=== PATIENT | male | born 1955 | race Caucasian/White ===

== ENCOUNTER 2016-07-23 09:42 | Emergency (ER) | payer OTHER ==
[2016-07-23] MEDS ORDERED: Ondansetron INJ* 2 MG/ML VIAL IV ONE (10:35)
[2016-07-23] MEDS ORDERED: Ketorolac INJ* 30 MG/ML 1 ML VIAL IV ONE (10:35)
[2016-07-23] MEDS ORDERED: HYDROmorphone INJ* 1 MG/ML CARPUJECT SYRINGE IV ONE (10:35)
[2016-07-23 10:52] LABS: Hematocrit 44 % (42-52); Hemoglobin 14.7 g/dl (14.0-18.0); Mean Corpuscular HGB Conc 33 g/dl (31-36); Mean Corpuscular Hemoglobin 30 pg (27-31); Mean Corpuscular Volume 90 fL (80-94); Mean Platelet Volume 7 um3 (7.4-10.4); Red Blood Count 4.91 10^6/ul (4.0-5.4); Red Cell Distribution Width 14 % (10.5-15); White Blood Count 13.1 10^3/ul (3.5-10.8)
[2016-07-23 11:08] LABS: Albumin 3.9 g/dL (3.2-5.2); C Reactive Protein 5.49 mg/L (< 5.00); Calcium 9.7 mg/dL (8.6-10.3); EGFR African American 126.8 (>60); EGFR Non-African American 98.6 (>60); Globulin 2.7 g/dL (2-4); Potassium 4.5 mmol/L (3.5-5.0); Total Bilirubin 0.3 mg/dL (0.2-1.0); Total Protein 6.6 g/dL (6.4-8.9)
--- NOTE | 2016-07-23 11:30 | RAD ---
CLINICAL HISTORY: Right flank pain COMPARISON: May 22, 2015 TECHNIQUE: Multiple contiguous axial CT scans were obtained of the abdomen and pelvis, without intravenous contrast enhancement. Coronal and sagittal multiplanar reformations are submitted for review. Oral contrast was not administered. FINDINGS: LUNG BASES: The lung bases are clear. LIVER: Simple cyst of the left lobe of liver. BILE DUCTS: There is no intrahepatic or extrahepatic biliary dilatation. GALLBLADDER: The gallbladder is normal, without pericholecystic inflammatory change. PANCREAS: The pancreas is normal, without mass or ductal dilatation. SPLEEN: Normal in size and appearance. UPPER GI TRACT: Evaluation of the gastrointestinal tract is limited by incomplete gastric distention. There is malrotation. The duodenal-jejunal junction is to the right of midline. SMALL BOWEL AND MESENTERY: As noted above, there is malrotation. There is no obstruction or findings of volvulus. COLON: There are multiple diverticula of the sigmoid colon. There is no pericolonic inflammatory change. ADRENALS: Normal bilaterally. KIDNEYS: There is perinephric stranding on the right with mild pelvic caliectasis and hydroureter. There is a 0.3 cm calculus of the distal right ureter. BLADDER: The bladder is smooth in contour. PELVIC ORGANS: The prostate gland is normal. The seminal vesicles are symmetric. AORTA: There is calcific atherosclerotic disease of the abdominal aorta and its branches, without aneurysmal dilatation IVC: Unremarkable LYMPH NODES: There is no lymphadenopathy by size criteria. ABDOMINAL WALL: There is no evidence for abdominal wall hernia. BONES AND SOFT TISSUES: Degenerative changes are noted along the spine OTHER: None IMPRESSION: 1. DISTAL RIGHT URETERAL STONE MEASURING 0.3, WITH MILD RIGHT HYDRONEPHROSIS. 2. MALROTATION. 3. DIVERTICULOSIS. 4. ATHEROSCLEROSIS
[2016-07-23] MEDS: NS 0.9% 1000 ML* 2,000 ML IV ONE ×2 (11:51→12:09)
[2016-07-23 12:58] LABS: Urine Bacteria Absent (Absent); Urine Bilirubin Negative (Negative); Urine Glucose Negative (Negative); Urine Nitrite Negative (Negative)
[2016-07-23 13:32] VITALS: BP 111/56
--- NOTE | 2016-07-23 15:26 | ED ---
Karson Perez Salem, scribed for Ky Vaughn MD on 07/23/16 at 1122 . Back Pain - HPI Summary HPI Summary: Patient is a 60 y/o male who presents to the ED with constant right flank pain since this morning. He reports pain radiates to his groin and is not aggravated or alleviated by anything. He reports nausea, but denies vomiting. Pt has a hx of renal calculi on the right side, but states that pain is dissimilar to past episode. - History of Current Complaint Chief Complaint: EDFlankPain Stated Complaint: RT SIDE ABD PAIN Time Seen by Provider: 07/23/16 10:01 Hx Obtained From: Patient Onset/Duration: Gradual Onset, Lasting Hours, Still Present Onset/Duration: Started Hours Ago, Still Present Timing: Constant Back Pain Location: Is Discrete @ - Right plank., Radiates To - Groin. Pain Intensity: 9 Pain Scale Used: 0-10 Numeric Aggravating Symptom(s): Nothing Alleviating Symptom(s): Nothing Associated Signs And Symptoms: Positive: Other - Nausea, but not vomiting. - Allergies/Home Medications Allergies/Adverse Reactions: Allergies Allergy/AdvReac Type Severity Reaction Status Date / Time NKDA Allergy Unknown See Comment Uncoded 07/23/16 09:47 PMH/Surg Hx/FS Hx/Imm Hx Endocrine/Hematology History: Reports: Hx Anticoagulant Therapy - low dose asa Denies: Hx Diabetes Cardiovascular History: Reports: Hx Coronary Artery Disease, Hx Hypercholesterolemia, Hx Hypertension - meds, Other Cardiovascular Problems/ Disorders - 04/2008- stent Denies: Hx Pacemaker/ICD Respiratory History: Reports: Hx Asthma - "possibly a hint", Hx Sleep Apnea - evaluation for 12/2013, Other Respiratory Problems/Disorders - hx pulmonary nodule GI History: Reports: Other GI Disorders - colon polyps, hemorrhoidectomy, malrotation intenstines History: Reports: Other Problems/Disorders - hx hematuria, negative work up (Alexandro) Denies: Hx Renal Disease Sensory History: Denies: Hx Hearing Aid Psychiatric History: Denies: Hx Panic Disorder - Surgical History Surgery Procedure, Year, and Place: 2007 & 2008- cardiac stent placements [facility] OK FOR 1.5 OR 3T 720G/CM PER PT CARD FAXED IN OTHER FACILITY INFO, 2006 -tubular adenoma (?pt denies), 2004 lap appendectomy, hemorrhoidectomy x2 Hx Anesthesia Reactions: Yes - 2005 paradoxical reaction conscious sedation Infectious Disease History: No Infectious Disease History: Denies: Hx Clostridium Difficile, Hx Hepatitis, Hx Human Immunodeficiency Virus (HIV), Hx of Known/Suspected MRSA, Hx Shingles, Hx Tuberculosis, Hx Known/ Suspected VRE, Hx Known/Suspected VRSA, History Other Infectious Disease, Traveled Outside the [place] in Last 30 Days - Family History Known Family History: Positive: Other - Brother has heart murmur. - Social History Alcohol Use: None Alcohol Amount: 20+ yrs without Substance Use Type: Reports: None Smoking Status (MU): Former Smoker Type: Cigarettes Amount Used/How Often: 1-3 ppd Length of Time of Smoking/Using Tobacco: 40 years Have You Smoked in the Last Year: No Review of Systems Positive: Nausea. Negative: Vomiting Positive: flank pain - Right flank radiating to groin area. All Other Systems Reviewed And Are Negative: Yes Physical Exam Triage Information Reviewed: Yes Vital Signs On Initial Exam: Initial Vitals Temp Pulse Resp BP Pulse Ox 98.0 F 98 20 132/71 99 07/23/16 09:47 07/23/16 09:47 07/23/16 09:47 07/23/16 09:47 07/23/16 09:47 Vital Signs Reviewed: Yes Appearance: Positive: Well-Appearing, Pain Distress - Moderate to severe pain. Skin: Positive: Warm, Skin Color Reflects Adequate Perfusion, Dry Head/Face: Positive: Normal Head/Face Inspection Eyes: Positive: Normal Neck: Positive: Supple, Nontender Respiratory/Lung Sounds: Positive: Clear to Auscultation, Breath Sounds Present Cardiovascular: Positive: RRR Abdomen Description: Positive: Nontender, Soft. Negative: CVA Tenderness (R), CVA Tenderness (L), Other: - Negative leg raise. Bowel Sounds: Positive: Present Musculoskeletal: Positive: Normal Neurological: Positive: Normal Psychiatric: Positive: Normal, Affect/Mood Appropriate AVPU Assessment: Alert - Justina Coma Scale Coma Scale Total: 15 Diagnostics - Vital Signs Vital Signs Temp Pulse Resp BP Pulse Ox 07/23/16 10:52 19 07/23/16 10:30 55 15 136/69 97 07/23/16 10:06 52 97 07/23/16 10:04 138/71 07/23/16 09:47 98.0 F 98 20 132/71 99 - Laboratory Lab Results: Lab Results 07/23/16 07/23/16 Range/Units 10:35 10:35 WBC 13.1 H (3.5-10.8) 10^3/ul RBC 4.91 (4.0-5.4) 10^6/ul Hgb 14.7 (14.0-18.0) g/dl Hct 44 (42-52) % MCV 90 (80-94) fL MCH 30 (27-31) pg MCHC 33 (31-36) g/dl RDW 14 (10.5-15) % Plt Count 354 (150-450) 10^3/ul MPV 7 L (7.4-10.4) um3 Neut % (Auto) 87.8 H (38-83) % Lymph % (Auto) 6.8 L (25-47) % Boyle % (Auto) 4.4 (1-9) % Eos % (Auto) 0.2 (0-6) % Baso % (Auto) 0.8 (0-2) % Absolute Neuts (auto) 11.5 H (1.5-7.7) 10^3/ul Absolute Lymphs (auto) 0.9 L (1.0-4.8) 10^3/ul Absolute Monos (auto) 0.6 (0-0.8) 10^3/ul Absolute Eos (auto) 0 (0-0.6) 10^3/ul Absolute Basos (auto) 0.1 (0-0.2) 10^3/ul Absolute Nucleated RBC 0 10^3/ul Nucleated RBC % 0 Sodium 138 (133-145) mmol/L Potassium 4.5 (3.5-5.0) mmol/L Chloride 107 (101-111) mmol/L Carbon Dioxide 25 (22-32) mmol/L Anion Gap 6 (2-11) mmol/L BUN 16 (6-24) mg/dL Creatinine 0.80 (0.67-1.17) mg/dL Est GFR ( Amer) 126.8 (>60) Est GFR (Non-Af Amer) 98.6 (>60) BUN/Creatinine Ratio 20.0 (8-20) Glucose 123 H (70-100) mg/dL Calcium 9.7 (8.6-10.3) mg/dL Total Bilirubin 0.30 (0.2-1.0) mg/dL AST 13 (13-39) U/L ALT 17 (7-52) U/L Alkaline Phosphatase 82 (34-104) U/L C-Reactive Protein 5.49 H (< 5.00) mg/L Total Protein 6.6 (6.4-8.9) g/dL Albumin 3.9 (3.2-5.2) g/dL Globulin 2.7 (2-4) g/dL Albumin/Globulin Ratio 1.4 (1-3) Result Diagrams: 07/23/16 10:35 07/23/16 10:35 Lab Statement: Any lab studies that have been ordered have been reviewed, and results considered in the medical decision making process. - CT ABD/PELVIS CT Interpretation Completed By: Radiologist - IMPRESSION: 1. DISTAL RIGHT URETERAL STONE MEASURING 0.3, WITH MILD RIGHT HYDRONEPHROSIS. 2. MALROTATION. 3. DIVERTICULOSIS. 4. ATHEROSCLEROSIS Re-Evaluation - Re-Evaluation First Eval Re-Evaluation Time: 11:45 Change: Improved Back Pain Course/Dx - Course Course Of Treatment: Mr. Archer presented to the Ed C/O an acute onset of severe right flank pain without exacerbating or relieving factors .. He improved a lot with ketorolac, hydromorphone and odanesetron IV. His CT showed a 3 mm right distal ureteral stone with hydronephrosis and his U/A showed only blood. He was D/C'd with Flomax, Percocet and a recommendation for ibuprofen and F/U. - Diagnoses Provider Diagnoses: Kidney calculus Discharge - Discharge Plan Condition: Stable Disposition: HOME Prescriptions: Tamsulosin CAP* [Flomax CAP*] 0.4 mg PO DAILY #7 cap oxyCODONE/Acetamin 5/325 MG* [Percocet 5/325 TAB*] 1 tab PO Q6H PRN #20 tab MDD 4 PRN Reason: Pain Patient Education Materials: Ibuprofen (By mouth), Oxycodone/Acetaminophen (By mouth), Tamsulosin (By mouth), Kidney Stones (ED) Referrals: Tracey Alcantar MD [Primary Care Provider] - 2 Days The documentation as recorded by the Karson ravi Salem accurately reflects the service I personally performed and the decisions made by , Ky Vaughn MD.
== END 2016-07-23 13:34 | disposition home or self-care (01) ==
LOC: ED 09:42
DX: N20.0 Calculus of kidney (principal); R11.0 Nausea; R10.84 Generalized abdominal pain; Z87.891 Personal history of nicotine dependence
CPT/HCPCS: 36415; 74176; 80053; 81003; 81015; 85025; 86140; 96374; 96375; 99284; J1170; J1885; J2405

== ENCOUNTER 2016-08-03 15:46 | Emergency (ER) | payer OTHER ==
[2016-08-03 18:22] VITALS: BP 135/62
--- NOTE | 2016-08-03 18:35 | UC ---
Shoulder Pain HPI - HPI Summary HPI Summary: right shoulder pain began Friday, no injury, just stopped Cipro on difficult to raise arm even up to shoulder height - History of Current Complaint Chief Complaint: UCUpperExtremity Stated Complaint: SHOULDER PAIN Time Seen by Provider: 08/03/16 18:28 Hx Obtained From: Patient Onset/Duration: Sudden Onset, Lasting Days - 2, Still Present Timing: Constant Severity Initially: Moderate Severity Currently: Moderate Location Of Pain: Is Discrete @ - anterior right shoulder Pain Intensity: 8 Pain Scale Used: 0-10 Numeric Character: Aching, Stiffness, Burning Aggravating Factor(s): Movement, Lifting Alleviating Factor(s): Rest, Nothing - not much relief with traci back and body Associated Signs And Symptoms: Positive: Numbness/Tingling - traveling down right arm Related History: 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---, Dominant Hand Right - Allergies/Home Medications Allergies/Adverse Reactions: Allergies Allergy/AdvReac Type Severity Reaction Status Date / Time NKDA Allergy Unknown See Comment Uncoded 07/23/16 09:47 PMH/Surg Hx/FS Hx/Imm Hx Previously Healthy: No Endocrine History Of: Denies: Diabetes Cardiovascular History Of: Reports: Cardiac Disorders - mi, Hypertension - meds Denies: Pacemaker/ICD Respiratory History Of: Reports: Asthma - "possibly a hint" GI/ History Of: Reports: Kidney Stones Denies: Renal Disease Other History Of: Anticoagulant Therapy - low dose asa - Surgical History Surgical History: Yes Surgery Procedure, Year, and Place: 2007 & 2008- cardiac stent placements [facility] V OK FOR 1.5 OR 3T 720G/CM PER PT CARD FAXED IN OTHER FACILITY INFO, 2006 -tubular adenoma (?pt denies), 2005 lap appendectomy, hemorrhoidectomy x2 - Family History Known Family History: Positive: Other - Brother has heart murmur. - Social History Occupation: Employed Full-time Lives: With Family Alcohol Use: None Alcohol Amount: 20+ yrs without Substance Use Type: None Smoking Status (MU): Former Smoker Type: Cigarettes Amount Used/How Often: 1-3 ppd Length of Time of Smoking/Using Tobacco: 40 years Have You Smoked in the Last Year: No When Did the Patient Quit Smoking/Using Tobacco: 2012 Review of Systems Constitutional: Negative Skin: Negative Eyes: Negative ENT: Negative Respiratory: Negative Cardiovascular: Negative Gastrointestinal: Negative Genitourinary: Negative Motor: Decreased ROM - right shoulder Neurovascular: Negative Musculoskeletal: Arthralgia - right shoulder Neurological: Negative Psychological: Negative All Other Systems Reviewed And Are Negative: Yes Physical Exam Triage Information Reviewed: Yes Appearance: Well-Nourished, Ill-Appearing - appears older than stated age, Pain Distress Vital Signs: Initial Vital Signs Temp 97.7 F 08/03/16 18:18 Pulse 61 08/03/16 18:18 Resp 18 08/03/16 18:18 BP 135/62 08/03/16 18:18 Pulse Ox 98 08/03/16 18:18 Vital Signs Reviewed: Yes Eye Exam: Normal Eyes: Positive: Conjunctiva Clear ENT Exam: Normal ENT: Positive: Normal ENT inspection, Hearing grossly normal, Pharynx normal. Negative: Nasal congestion, Nasal drainage, Tonsillar swelling, Tonsillar exudate, Trismus, Muffled/hoarse voice Dental Exam: Other - no teeth Neck exam: Normal Neck: Positive: Supple, Nontender, No Lymphadenopathy Respiratory Exam: Normal Respiratory: Positive: Chest non-tender, Normal breath sounds, No respiratory distress, No accessory muscle use Cardiovascular Exam: Normal Cardiovascular: Positive: RRR, Pulses Normal, Brisk Capillary Refill Musculoskeletal: Positive: No Edema, Strength Limited @ - right shoulder, ROM Limited @ - right shoulder Neurological Exam: Normal Neurological: Positive: Alert, Muscle Tone Normal Psychological Exam: Normal Psychological: Positive: Normal Response To Family Skin Exam: Normal Diagnostics - Radiology No standard instances Xray Interpretation: Positive (See Comments) - right calcific tendonitis Radiology Interpretation Completed By: ED Physician, Radiologist Shoulder Course/Dx - Course Course Of Treatment: pain control, gentle movement, follow with Dr. Borges this week - Differential Dx/Diagnosis Differential Diagnosis/HQI/PQRI: Bursitis, Sprain, Strain, Tendonitis Provider Diagnoses: right shoulder calcific tendonitis Discharge - Discharge Plan Condition: Stable Disposition: HOME Prescriptions: Hydrocodone-Acetaminophen [Hydrocodone/Acetaminophen 5-325 mg] 1 tab PO Q4H PRN #24 tab MDD 6 PRN Reason: pain Patient Education Materials: Rotator Cuff Tendinitis (ED), Calcific Tendinitis (ED) Referrals: Rico Borges MD [Medical Doctor] - 3 Days Tracey Alcantar MD [Primary Care Provider] -
[2016-08-03] MEDS ORDERED: HYDROcodone/ACETAMIN 5-325 MG* 1 TAB PO ONE (18:37)
--- NOTE | 2016-08-03 18:54 | RAD ---
INDICATION: Right shoulder pain COMPARISON: None TECHNIQUE: Routine frontal and Y views were obtained. FINDINGS: There are no acute bony findings. The shoulder to place only. There are findings of calcific tendinitis. IMPRESSION: CALCIFIC TENDINITIS.
== END 2016-08-03 19:40 | disposition home or self-care (01) ==
LOC: UCEAST 15:46
DX: M75.31 Calcific tendinitis of right shoulder (principal); I10 Essential (primary) hypertension; I25.2 Old myocardial infarction; Z79.82 Long term (current) use of aspirin; I25.10 Atherosclerotic heart disease of native coronary artery without angina pectoris; Z95.5 Presence of coronary angioplasty implant and graft; Z87.891 Personal history of nicotine dependence
CPT/HCPCS: 99212; G0463

== ENCOUNTER 2016-08-09 11:25 | Day surgery (SDC) | payer OTHER ==
--- NOTE | 2016-08-08 03:31 | HP ---
ADMITTING HISTORY AND PHYSICAL: DATE OF ADMISSION: 08/09/16 AGE: 61 years, male. ADMITTING DIAGNOSIS: Calculus right ureter. PLANNED PROCEDURE: Right ureteroscopy, possible laser and stent insertion. SURGEON: Dale Mc MD ADMITTING HISTORY AND PHYSICAL: Gianni Eduardo is a 61-year-old gentleman who initially had been evaluated over 2 weeks ago for right flank pain, even noted to have a 4 mm calculus in the distal right ureter. He was managed conservatively and was placed on Flomax. His symptoms had actually improved, but a follow up ultrasound done over 2 weeks later revealed a persistent 4 mm calculus in the distal right ureter. He was given the option of continuing conservative management, but would like to have the stone removed and I suggested deferring the procedure to 08/09/16 to give him more time to see if he can spontaneously pass the calculus. PAST MEDICAL HISTORY: Significant for: 1. Hypertension. 2. Coronary artery disease. 3. Asthma. 4. Sleep apnea. MEDICATIONS: On admission: 1. Metoprolol 25 mg daily. 2. Flexeril 10 mg q.8 h. p.r.n. 3. Mucinex 600 mg b.i.d. p.r.n. 4. Ventolin 2 puffs 4 times a day p.r.n. 5. Aspirin 81 mg a day. 6. Crestor 40 mg a day. 7. Symbicort 2 puffs twice a day. 8. Tramadol 50 mg 1 tablet 3 to 4 times daily as needed. 9. Lisinopril 2.5 mg 1 tablet daily. ALLERGIES: No known drug allergies. PHYSICAL EXAMINATION GENERAL: Reveals a pleasant middle-aged gentleman. VITAL SIGNS: Blood pressure is 122/72, pulse 70 per minute, oxygen saturation 96% on room air. LUNGS: Clear bilaterally. There is mild right CVA tenderness. CARDIOVASCULAR: Regular rate and rhythm. S1, S2. IMPRESSION: A 61-year-old gentleman with a persistent calculus in the distal right ureter. PLAN/RECOMMENDATIONS: Planned procedure is right ureteroscopy, possible laser and stent insertion. CC: Tracey Alcantar MD; Kane Jett MD; Dale Mc MD * [id number]/[facility] #: [id number] [facility]
[~2016-08-09 11:25] MED LIST: Buffered Lidocaine 1% SYR 3ML* 3 ML/SYR SYRINGE INTRADERM ONE; Famotidine IV* 10 MG/ML 2 ML (20 mg) IV ONE; Iohexol 180 (CONTRAST) 10 ML SDV IV ONE
[2016-08-09] MEDS ORDERED: cefTRIAXone(*) 2 GM ADDV.VIAL IVPB ONE (11:30)
[2016-08-09] MEDS ORDERED: Famotidine IV* 10 MG/ML 2 ML (20 mg) ONE (11:30)
[2016-08-09] MEDS ORDERED: Midazolam* 1 MG/ML 5 ML VIAL (5 MG) ONE (12:11)
[2016-08-09] MEDS ORDERED: fentaNYL* 50 MCG/ML 2 ML VIAL (100 MCG VIAL) ONE ×2 (12:11→14:09)
[2016-08-09] MEDS ORDERED: Dexamethasone IV* 4 MG/ML 1 ML (4 MG) ONE (12:14)
[2016-08-09] MEDS ORDERED: Ketorolac INJ* 30 MG/ML 1 ML VIAL ONE (12:14)
[2016-08-09] MEDS ORDERED: Propofol* 10 MG/ML 20 ML BTL IV PUSH ONE (12:14)
[2016-08-09] MEDS ORDERED: Lidocaine 2% PF * 5 ML VIAL ONE (12:14)
[2016-08-09] MEDS ORDERED: Ondansetron INJ* 2 MG/ML VIAL ONE (12:14)
[2016-08-09] MEDS ORDERED: Acetaminophen TAB* 325 MG PO PRN (12:51)
[2016-08-09] MEDS ORDERED: HYDROmorphone INJ* 1 MG/ML CARPUJECT SYRINGE IV PRN (12:51)
[2016-08-09] MEDS ORDERED: oxyCODONE/Acetamin 5/325 MG* TAB PO PRN (12:51)
[2016-08-09] MEDS ORDERED: DiMENhydriNATE IV* 50 MG/ML VIAL IV PUSH PRN (12:51)
--- NOTE | 2016-08-09 14:46 | RAD ---
CPT II Codes: 6045F INDICATION: Right ureteral stone. Fluoroscopic services provided for referring physician. 10 seconds of fluoroscopy time was used. 4 spot images demonstrates right-sided retrograde pyelogram with suggestion of a filling defect at the ureteropelvic junction. Placement of a wire and a ureteral stent is noted. IMPRESSION: Successful placement of right ureteral stent.
[2016-08-09] MEDS ORDERED: Tamsulosin CAP* 0.4 MG ONE (15:21)
[2016-08-09 15:42] VITALS: BP 118/72
--- NOTE | 2016-08-10 05:35 | OP ---
DATE OF OPERATION: 08/09/16 - [facility] DATE OF : 55 SURGEON: Dale Mc MD ANESTHESIOLOGIST: Dr. Laureano. ANESTHESIA: General. PRE-OP DIAGNOSIS: Calculus, right ureter. POST-OP DIAGNOSIS: Calculus, right ureter. OPERATIVE PROCEDURE: Cystoscopy, right retrograde pyelogram, right ureteroscopy and stone extraction, and right stent insertion. INDICATIONS: Gianni Eduardo is a 61-year-old gentleman who has had a persistent calculus in the right ureter and he would like to have it removed. I discussed the procedure and he is now being brought in for right ureteroscopy. COMPLICATIONS: None. OPERATIVE FINDINGS: A 4- to 5-mm calculus, right distal ureter, with mild surrounding edema and inflammation. POSTOPERATIVE CONDITION: Stable. STENTS USED: 6-[place]er stent, right ureter. DESCRIPTION OF PROCEDURE: After induction of general anesthesia, the patient was placed in dorsal lithotomy position. Sequential compression devices were in place and functioning. Initial cystoscopy revealed a mild stricture in the proximal bulbar urethra, a mildly enlarged prostate, and a normal-appearing bladder. A guidewire was introduced into the right ureter. Retrograde pyelogram was essentially unremarkable and a 6-[place] Konger semirigid ureteroscope was introduced and advanced into the ureter under direct vision. The distal most part of the ureter was fairly narrow, which was probably why the calculus had not passed and a couple of centimeters above the ureterovesical junction, a 4- to 5-mm sharp edged calculus was noted. This was engaged using a basket and was fairly friable and broke up into 2 to 3 smaller fragments, all of which were retrieved. The ureteroscope was advanced proximally to make sure there were no additional stones and none were noted. A 6-[place] Konger stent was introduced and positioned under fluoroscopy with good proximal and distal positioning obtained. The patient tolerated the procedure satisfactorily and was transferred back to the recovery area in stable condition. CC: Dr. Tracey Alcantar* [id number]/[facility] #: [id number] [facility]
== END 2016-08-09 16:08 | disposition home or self-care (01) ==
LOC: OR 11:25
PROVIDERS: ATTEND Urology
DX: N20.1 Calculus of ureter (principal); I10 Essential (primary) hypertension; I25.10 Atherosclerotic heart disease of native coronary artery without angina pectoris; J45.909 Unspecified asthma, uncomplicated
CPT/HCPCS: 74420; C1876; J0696; J1100; J1885; J2250; J2405; J2704; J3010

== ENCOUNTER 2017-11-23 11:14 | Emergency (ER) | payer OTHER ==
[2017-11-23 11:23] VITALS: BP 127/60
--- NOTE | 2017-11-23 12:05 | UC ---
Skin Complaint HPI - HPI Summary HPI Summary: fish hook in left ring finger, pain increased with extension of finger - History of Current Complaint Chief Complaint: UCSkin Time Seen by Provider: 11/23/17 11:39 Stated Complaint: FISH HOOK LEFT HAND Hx Obtained From: Patient Onset/Duration: Sudden Onset, Lasting Hours Skin Exposure Onset/Duration: Hours Ago Timing: Constant Onset Severity: Moderate Current Severity: Moderate Pain Intensity: 1 Character: Redness, Painful Related History: Foreign Body - Allergy/Home Medications Allergies/Adverse Reactions: Allergies Allergy/AdvReac Type Severity Reaction Status Date / Time No Known Allergies Allergy Verified 11/23/17 11:23 Review of Systems Constitutional: Negative Skin: Other - FB Eyes: Negative ENT: Negative Respiratory: Negative Cardiovascular: Negative Gastrointestinal: Negative Genitourinary: Negative Motor: Negative Neurovascular: Negative Musculoskeletal: Negative Neurological: Negative Psychological: Negative Is Patient Immunocompromised?: No All Other Systems Reviewed And Are Negative: Yes PMH/Surg Hx/FS Hx/Imm Hx Previously Healthy: Yes Other History Of: Anticoagulant Therapy - low dose asa - Surgical History Surgical History: Yes Surgery Procedure, Year, and Place: 2007 & 2008- cardiac stent placements. 2005 lap appendectomy, hemorrhoidectomy x2 - Family History Known Family History: Positive: Other - Brother has heart murmur. Negative: Hypertension - Social History Alcohol Use: None Alcohol Amount: 20+ yrs without Substance Use Type: Marijuana Substance Use Comment - Amount & Last Used: OCCASIONAL- LAST 08/08/16 Smoking Status (MU): Former Smoker Type: Cigarettes Amount Used/How Often: 1-3 ppd- NOW SMOKES 3-4 SMALL CIGARS DAILY X OFF AND ON SINCE AGE 18 Length of Time of Smoking/Using Tobacco: 40 years Have You Smoked in the Last Year: No When Did the Patient Quit Smoking/Using Tobacco: 2012 Physical Exam Triage Information Reviewed: Yes Appearance: Well-Appearing, Well-Nourished, Pain Distress Vital Signs: Initial Vital Signs Temp 99.2 F 11/23/17 11:20 Pulse 68 11/23/17 11:20 Resp 18 11/23/17 11:20 BP 127/60 11/23/17 11:20 Pulse Ox 95 11/23/17 11:20 Vital Signs Reviewed: Yes Eye Exam: Normal ENT Exam: Normal Dental Exam: Normal Neck exam: Normal Neck: Positive: Supple, Nontender, No Lymphadenopathy Respiratory Exam: Normal Respiratory: Positive: Chest non-tender, Lungs clear, Normal breath sounds Cardiovascular Exam: Normal Cardiovascular: Positive: RRR, No Murmur, Pulses Normal Abdominal Exam: Normal Bowel Sounds: Positive: Present Musculoskeletal: Positive: No Edema, Strength Limited @ - due to pain, ROM Limited @ - extension is painful Neurological Exam: Normal Psychological Exam: Normal Skin: Positive: significant lesion(s) - patient has fish hook in left ring finger Diagnostics - Radiology No standard instances Xray Interpretation: Positive (See Comments) - for fB, no osseus involvement Radiology Interpretation Completed By: Radiologist Course/Dx - Course Course Of Treatment: hx obtained, exam performed ,meds reviewed, xray obtained, digital block performed for pain control, removed hook without difficulty - Differential Diagnoses - Skin Complaint Differential Diagnoses: Foreign Body - Diagnoses Provider Diagnoses: fish hook in hand - Physician Notification/Consults Discussed Patient Care With: Lotus Martel - advised removal here and follow up in her office tomorrow Discharge - Sign-Out/Discharge Documenting (check all that apply): Discharge/Admit/Transfer - Discharge Plan Condition: Stable Disposition: HOME Patient Education Materials: Soft Tissue Foreign Body (ED) Referrals: Tracey Alcantar MD [Primary Care Provider] - Additional Instructions: 1. take the medication as prescribed. 2. Warm water soaks 1-2 times a day. 2. Follow up with Dr Martel in the morning, see attached number and address. - Billing Disposition and Condition Condition: STABLE Disposition: Home
--- NOTE | 2017-11-23 12:23 | RAD ---
HISTORY: FB in finger COMPARISONS: None VIEWS: 4, Frontal, lateral, and oblique views of the fourth digit of the left hand. Evaluation of the proximal phalanx is limited by metallic artifact from jewelry. FINDINGS: BONE DENSITY: Normal. BONES: There is no displaced fracture. JOINTS: There is no arthropathy. ALIGNMENT: There is no dislocation. SOFT TISSUES: There is a radiopaque foreign body in the soft tissues dorsal to the proximal phalanx of the fourth digit measuring approximately 0.7 cm in greatest dimension. There is a second radiopaque foreign body within the soft tissues of the tuft of the distal phalanx fourth digit measuring 0.2 cm in size. OTHER FINDINGS: None. IMPRESSION: RADIOPAQUE FOREIGN BODIES ALONG THE FOURTH DIGIT DESCRIBED ABOVE. NO ACUTE OSSEOUS INJURY. IF SYMPTOMS PERSIST, RECOMMEND REPEAT IMAGING
[2017-11-23] MEDS ORDERED: Lidocaine 2% PF * 5 ML VIAL INJ ONE (12:39)
== END 2017-11-23 13:25 | disposition home or self-care (01) ==
LOC: UCEAST 11:14
DX: S61.245A Puncture wound with foreign body of left ring finger without damage to nail, initial encounter (principal); X58.XXXA Exposure to other specified factors, initial encounter; Y93.9 Activity, unspecified; Y92.9 Unspecified place or not applicable; Z79.82 Long term (current) use of aspirin; Z87.891 Personal history of nicotine dependence; Z82.49 Family history of ischemic heart disease and other diseases of the circulatory system
CPT/HCPCS: 10120; 73140; 99212; G0463